=== PATIENT | female | born 1965 | race Caucasian/White ===

== ENCOUNTER 2017-07-25 16:19 | Emergency (ER) | payer MEDICAID ==
[~2017-07-25] VITALS: Ht 160 cm; Wt 86.0 kg
[~2017-07-25 16:19] MED LIST: ALBU18HF INH; ASCO100019 PO; ATOR10TA9 PO; CALC1CAP8 PO; CALC625T23 PO; CARB200T4 PO; CINN500C2 PO; CYCL-259 PO; DIVA500T17 PO; DULO60CA55 PO; FINA5TAB4 PO; HYDR25TA11 PO; IPRA4AER INH; LORA10CA PO; OMEG1CAP24 PO; PHEN30TA PO; SENN1TAB67 PO; VENL150T PO; VITA1CAP PO
[2017-07-25] MEDS ORDERED: SODIUM CHLORIDE 0.9% 1,000 ML IV ONE (16:22)
[2017-07-25] MEDS ORDERED: LORazepam 2 MG/ML, 1ML IVPush ONE (16:30)
[2017-07-25] MEDS ORDERED: SODIUM CHLORIDE 0.9% 1,000ML IVBOLUS ONE (16:30)
[2017-07-25 17:04] LABS: BASOPHILS # (AUTO) 0.02 x10^3/uL (0-0.1); BASOPHILS % (AUTO) 1 % (0-1); EOSINOPHILS # (AUTO) 0.06 x10^3/uL (0-0.4); EOSINOPHILS % (AUTO) 1 % (1-7); LYMPHOCYTES # (AUTO) 0.57 x10^3/uL (1-3.4); LYMPHOCYTES % (AUTO) 13 % (22-44); MD NO; MEAN CORPUSCULAR HGB CONC 34.7 g/dL (32.4-35.8); MEAN CORPUSCULAR VOLUME 103.6 fL (80-100); MEAN PLATELET VOLUME 6.9 fL (7.4-10.4); MONOCYTES # (AUTO) 0.43 x10^3/uL (0.2-0.8); MONOCYTES % (AUTO) 10 % (2-9); NEUTROPHILS # (AUTO) 3.19 x10^3/uL (1.8-6.8); NEUTROPHILS % (AUTO) 75 % (42-75); PLATELET COUNT 390 x10^3/uL (130-400); RED BLOOD COUNT 4.03 x10^6/uL (3.82-5.3); RED CELL DISTRIBUTION WIDTH 19.4 % (9.6-15.2)
[2017-07-25] MEDS ORDERED: LORazepam 2 MG/ML, 1ML ONE (17:08)
[2017-07-25 17:11] LABS: ALANINE AMINOTRANSFERASE 25 U/L (12-78); ALBUMIN 3.9 g/dL (3.4-5.0); ANION GAP 11 mmol/L (5-15); CALCIUM 9.6 mg/dL (8.5-10.1); CHLORIDE 105 mmol/L (98-107); CREATININE 0.86 mg/dL (0.55-1.02)
[2017-07-25 17:13] LABS: ALKALINE PHOSPHATASE 196 U/L (45-117); BILIRUBIN,TOTAL 0.5 mg/dL (0.2-1.0)
[2017-07-25] MEDS ORDERED: BENZ-17 PO (17:30)
[2017-07-25] MEDS ORDERED: LORA10TA3 PO (17:30)
[2017-07-25] MEDS ORDERED: HYDR-3237 PO (17:30)
[2017-07-25] MEDS ORDERED: LISI2.5T PO (17:30)
[2017-07-25] MEDS ORDERED: INSU100I34 SQ (17:30)
[2017-07-25] MEDS ORDERED: NAPR-856 PO (17:30)
[2017-07-25] MEDS ORDERED: MELO7.5T31 PO (17:30)
[2017-07-25] MEDS ORDERED: POTASSIUM CHLORIDE 20 MEQ TAB.ER.PRT ONE (17:40)
[2017-07-25] MEDS ORDERED: POTASSIUM CHLORIDE 20 MEQ TAB.ER.PRT PO ONE (18:00)
[2017-07-25 22:25] VITALS: BP 95/50
== END 2017-07-25 23:21 | disposition home or self-care (01) ==
LOC: ED 20:22
DX: G40.909 Epilepsy, unspecified, not intractable, without status epilepticus (principal); E87.6 Hypokalemia; E11.9 Type 2 diabetes mellitus without complications
CPT/HCPCS: 36415; 80053; 80156; 85025; 93005; 96361; 96374; 99285; J2060; J7030